=== PATIENT | female | born 1975 | race Caucasian/White ===

== ENCOUNTER 2016-05-10 18:07 | Emergency (ER) | payer OTHER ==
[~2016-05-10] VITALS: Ht 162.6 cm; Wt 74.3 kg
[~2016-05-10 18:07] MED LIST: ADDERALL XR 2525 MG PO; ADDERALL XR25 MG PO; ALLOPURINOL100 MG PO; AUGMENTIN875 MG PO; Adderall XR PO; CIPRO500 MG PO; Dulcolax PO; ESTRADIOL1 EA14 TD; EVOXAC PO; EVOXAC30 MG PO; FLOMAX0.4 M1 PO; HYDROXYCHLOROQ200 MG PO; Levothroid,Synthroid PO; MAGNESIUM CITR100 MG PO; NICOTINE PATCH1 EAC2 TD; ONDANSETRON HCL8 MG PO; ONE DAILY TABL1 EAC1 PO; PLAQUENIL200 MG PO; PriLOSEC OTC PO; SUMATRIPTAN SUC50 MG PO; SYNTHROID150 MCG PO; SYNTHROID200 MCG PO; Senokot S,Pericolace PO; TYLENOL REGULA325 MG PO; Theragran PO; VICODIN,LORT1 TABLET PO; VITAL-D RX TAB1 EACH PO; VITAMIN D2000 INTUN PO; VITAMIN D22000 UNIT PO; Vicodin,Norco 5/325 PO; WOMEN'S DAILY1 EAC1 PO
[2016-05-10 19:00] LABS: HEMATOCRIT 44.4 % (36.0-46.0); MCH 33.5 PG (29.0-34.0); MCV 98.4 FL (83-99); MEAN PLAT.VOLUME 10.7 uM^3 (9.5-12.4); PLATELET COUNT 191 K/uL (156-360); RBC DIS.WIDTH-CV 13.2 % (11.8-14.6); RBC DIS.WIDTH-SD 46.5 % (39-53); RED BLOOD COUNT 4.51 M/uL (3.80-5.20); WHITE BLOOD COUNT 9.3 K/uL (4.1-10.2)
[2016-05-10 19:15] LABS: CHLORIDE 114 mEq/L (99-109); POTASSIUM 3.4 mEq/L (3.7-5.4); SODIUM 140 mEq/L (136-147)
[2016-05-10 19:17] LABS: GLUCOSE 88 mg/dL (70-99)
[2016-05-10 19:18] LABS: ANION GAP 7 MEQ/L (2-14)
[2016-05-10 19:20] LABS: TROP-I INTERPRETATION NEGATIVE; TROPONIN-I < 0.01 ng/mL (0.0-0.30)
[2016-05-10 19:21] LABS: GFR ESTIMATE (CALCULATED) > 59 mL/min/
[2016-05-10 19:22] LABS: UREA NITROGEN (BUN) 15 mg/dL (9-23)
[2016-05-10] MEDS ORDERED: HYCODAN SYRUP480 ML PO (19:42)
[2016-05-10 20:00] VITALS: BP 165/91
== END 2016-05-10 20:07 | disposition home or self-care (01) ==
LOC: EME 18:07
DX: R09.1 Pleurisy (principal); F17.200 Nicotine dependence, unspecified, uncomplicated; R06.02 Shortness of breath; E03.9 Hypothyroidism, unspecified
CPT/HCPCS: 71020; 80048; 84484; 85027; 93005; 99281; 99284; J1100

== ENCOUNTER 2016-05-22 11:25 | Emergency (ER) | payer OTHER ==
[~2016-05-22] VITALS: Ht 162.6 cm; Wt 73.0 kg
[~2016-05-22 11:25] MED LIST changes: +HYCODAN SYRUP480 ML PO
[2016-05-22 12:05] LABS: HEMATOCRIT 47.8 % (36.0-46.0); MCH 32.7 PG (29.0-34.0); MCHC 33.7 G/DL (30.0-36.0); MEAN PLAT.VOLUME 10.6 uM^3 (9.5-12.4); PLATELET COUNT 213 K/uL (156-360); RBC DIS.WIDTH-SD 45.2 % (39-53); RED BLOOD COUNT 4.93 M/uL (3.80-5.20); WHITE BLOOD COUNT 7.8 K/uL (4.1-10.2)
[2016-05-22 12:13] LABS: CHLORIDE 110 mEq/L (99-109); POTASSIUM 3.5 mEq/L (3.7-5.4); SODIUM 139 mEq/L (136-147)
[2016-05-22 12:15] LABS: GLUCOSE 111 mg/dL (70-99)
[2016-05-22 12:17] LABS: ANION GAP 8 MEQ/L (2-14)
[2016-05-22 12:19] LABS: GFR ESTIMATE (CALCULATED) 52 mL/min/
[2016-05-22 12:20] LABS: UREA NITROGEN (BUN) 15 mg/dL (9-23)
[2016-05-22 12:26] LABS: TROP-I INTERPRETATION NEGATIVE; TROPONIN-I < 0.01 ng/mL (0.0-0.30)
[2016-05-22 13:38] LABS: D-DIMER ELISA 0.27 mg/L FEU (< 0.57)
[2016-05-22 14:51] LABS: TROP-I INTERPRETATION NEGATIVE; TROPONIN-I < 0.01 ng/mL (0.0-0.30)
[2016-05-22 15:48] VITALS: BP 141/84
== END 2016-05-22 15:49 | disposition home or self-care (01) ==
LOC: EME 11:25
PROVIDERS: Emergency Medicine
DX: R07.89 Other chest pain (principal); M35.00 Sjogren syndrome, unspecified; E03.9 Hypothyroidism, unspecified; M79.7 Fibromyalgia; N18.2 Chronic kidney disease, stage 2 (mild); F17.200 Nicotine dependence, unspecified, uncomplicated
CPT/HCPCS: 71020; 80048; 84484; 85027; 85379; 93005; 99281; 99285; J1885; J7030

== ENCOUNTER 2017-08-18 15:04 | Emergency (ER) | payer OTHER ==
[~2017-08-18] VITALS: Ht 162.6 cm; Wt 77.6 kg
[2017-08-18 15:45] LABS: HEMATOCRIT 39.1 % (36.0-46.0); HEMOGLOBIN 13.8 G/DL (11.9-15.5); MCH 35.4 PG (29.0-34.0); MCHC 35.3 G/DL (30.0-36.0); MCV 100.3 FL (83-99); PLATELET COUNT 207 K/uL (156-360); RBC DIS.WIDTH-CV 12.4 % (11.8-14.6); RBC DIS.WIDTH-SD 45.6 % (39-53); WHITE BLOOD COUNT 8.7 K/uL (4.1-10.2)
[2017-08-18 15:52] LABS: CHLORIDE 114 mEq/L (99-109); POTASSIUM 4.5 mEq/L (3.7-5.4); SODIUM 139 mEq/L (136-147)
[2017-08-18 15:54] LABS: GLUCOSE 97 mg/dL (70-99)
[2017-08-18 15:58] LABS: CREATININE 1.3 mg/dL (0.6-1.3); GFR ESTIMATE (CALCULATED) 48 mL/min/
[2017-08-18 15:59] LABS: UREA NITROGEN (BUN) 19 mg/dL (9-23)
[2017-08-18 16:08] LABS: APPEARANCE SL.HAZY ((CLEAR)); BILIRUBIN NEGATIVE; BLOOD LARGE; COLOR YELLOW ((YELLOW)); GLUCOSE (STRIP) NEGATIVE; KETONES NEGATIVE; LEUKOCYTES NEGATIVE; NITRITE NEGATIVE; PROTEIN (STRIP) NEGATIVE; UROBILINOGEN 0.2 MG/DL (0.2-1.0)
[2017-08-18 16:15] LABS: BACTERIA RARE /HPF; EPITHELIAL CELLS 2+ /HPF; HYALINE CASTS 0-5 /LPF; MUCUS TRACE /LPF; UCUL ADDED? NO; WHITE BLOOD CELLS 0-5 /HPF (0-5)
[2017-08-18 16:40] VITALS: BP 132/88
== END 2017-08-18 16:44 | disposition home or self-care (01) ==
LOC: EME 15:04
DX: N20.0 Calculus of kidney (principal); M79.7 Fibromyalgia; M32.9 Systemic lupus erythematosus, unspecified; F17.200 Nicotine dependence, unspecified, uncomplicated; Z86.2 Personal history of diseases of the blood and blood-forming organs and certain disorders involving the immune mechanism; Z87.442 Personal history of urinary calculi; Z87.440 Personal history of urinary (tract) infections; Z90.49 Acquired absence of other specified parts of digestive tract; Z90.710 Acquired absence of both cervix and uterus; Z88.2 Allergy status to sulfonamides; Z88.5 Allergy status to narcotic agent; Z88.8 Allergy status to other drugs, medicaments and biological substances
CPT/HCPCS: 80048; 81003; 85027; 99281; 99284